=== PATIENT | male | born 1950 | race Caucasian/White ===

== ENCOUNTER 2021-11-14 21:49 | Emergency (ER) | payer OTHER ==
[~2021-11-14] VITALS: Ht 170.2 cm; Wt 73.0 kg
[2021-11-14] MEDS ORDERED: DILTIAZEM HCL 5MG/ML 5ML VIAL IV ONE (22:30)
[2021-11-14] MEDS ORDERED: ASPIRIN 81MG TABLET PO ONE (22:30)
[2021-11-14 22:48] LABS: EOSINOPHILS % 4.7 % (0.0-5.0); HEMATOCRIT. 37.5 % (42.0-52.0); HEMOGLOBIN. 12.9 g/dL (14.0-18.0); LYMPHOCYTES % 24.7 % (20.0-50.0); MEAN CORPUSCULAR HEMOGLOBIN 30.2 pg (28.0-32.0); MEAN CORPUSCULAR VOLUME 87.7 fL (80.0-94.0); MEAN PLATELET VOLUME 7.4 fl (7.4-10.4); MONOCYTES % 9.5 % (2.0-8.0); NEUTROPHILS % 60.1 % (40.0-76.0); PLATELET 193 x1000/uL (130-400); RED BLOOD CELL COUNT 4.27 mill/uL (4.7-6.1)
[2021-11-14 22:54] LABS: CHLORIDE 105 mEq/L (98-107)
[2021-11-14 23:03] LABS: INR 2.3; PARTIAL THROMBOPLASTIN TIME 41.7 sec (23.4-31.0); PROTHROMBIN TIME 23.4 sec (9.6-11.0)
[2021-11-15 01:26] VITALS: BP 98/56
== END 2021-11-15 01:31 | disposition short-term general hospital (02) ==
LOC: ER 21:49
DX: I48.20 Chronic atrial fibrillation, unspecified (principal); I10 Essential (primary) hypertension; Z95.2 Presence of prosthetic heart valve; Z20.822 Contact with and (suspected) exposure to COVID-19
CPT/HCPCS: 36415; 71045; 80053; 82962; 83880; 84484; 85025; 85610; 85730; 87426; 93005; 96374; 99285; C9803; J3490